=== PATIENT | female | born 1990 | race Caucasian/White ===

== ENCOUNTER 2016-10-27 12:25 | Outpatient (CLI) | payer OTHER ==
[2016-10-27 13:59] LABS: #Basophils 0.1 thou/uL (0.0-0.2); #Monocytes 0.4 thou/uL (0.11-0.59); #Neutrophils 6.4 thou/uL (1.40-6.50); %Basophils 0.6 % (0.0-1.0); %Eosinophils 0.4 % (0.0-10.0); %Lymphocytes 18.9 % (21.0-51.0); %Monocytes 4.3 % (0.0-10.0); %Neutrophils 75.8 % (42.0-75.0); Anisocytosis SLIGHT = 6-15 cells (100X) (0-5/hpf); Hemoglobin 12.4 g/dL (12.0-16.0); MDiff Complete? YES; Mean Corpuscular HGB CONC 34.6 g/dL (32.0-36.0); Mean Corpuscular Hemoglobin 34.3 pg (27.0-31.0); Mean Corpuscular Volume 99.1 fl (81.0-99.0); Mean Platelet Volume 8.1 fL (7.4-10.4); PLT Morphology Comment Appears Adequate; Platelet Count 223 thou/uL (130-400); RBC Distribution Width 11.9 % (11.5-14.5); Red Blood Cell (RBC) Count 3.62 mill/uL (4.20-5.40); White Blood Cell (WBC) Count 8.5 thou/uL (4.8-10.8)
[2016-10-27 18:13] LABS: HIV (1/2) Antibody/Antigen Non-Reactive (NonReactive); HIV 1/2 INDEX 0.24 S/CO (<1.00)
== END 2016-10-27 12:26 ==
LOC: MADLABBHPM 12:25
PROVIDERS: ATTEND Family Medicine
DX: Z34.83 Encounter for supervision of other normal pregnancy, third trimester (principal)
CPT/HCPCS: 82950; 85025; 86592; 87389

== ENCOUNTER 2016-12-19 17:58 | Outpatient (CLI) | payer OTHER | END 2016-12-19 17:59 | disposition home or self-care (01) | LOC: MADLABBHPM 17:58 | PROVIDERS: ATTEND Family Medicine | DX: Z34.83 Encounter for supervision of other normal pregnancy, third trimester (principal) | CPT/HCPCS: 87081 ==

== ENCOUNTER 2018-05-24 15:30 | Emergency (ER) | payer OTHER, SELFPAY ==
[~2018-05-24 15:30] MED LIST: Iopamidol 370 76% 100 ML VIAL ONE
[2018-05-24 16:15] LABS: Bilirubin Negative (Negative); Blood, Urine Large (Negative); Glucose, Urine (Dipstick) Negative (Negative); Leukocyte Negative (Negative); Nitrite Negative (Negative); Protein, Urine (Dipstick) 30 mg/dL (Neg-Trace); Specific Gravity, Urine 1.025 (1.005-1.030); pH, Urine 6.5 (5.0-9.0)
[2018-05-24 16:17] LABS: #Basophils 0.1 thou/uL (0.0-0.2); #Eosinphils 0.1 thou/uL (0.0-0.7); #Lymphocytes 2.2 thou/uL (1.20-3.40); #Monocytes 0.4 thou/uL (0.11-0.59); #Neutrophils 7.1 thou/uL (1.40-6.50); %Basophils 0.6 % (0.0-1.0); %Eosinophils 1.1 % (0.0-10.0); %Monocytes 4.5 % (0.0-10.0); %Neutrophils 71.8 % (42.0-75.0); Hemoglobin 13.8 g/dL (12.0-16.0); Mean Corpuscular HGB CONC 33.2 g/dL (32.0-36.0); Mean Corpuscular Hemoglobin 31.9 pg (27.0-31.0); Mean Platelet Volume 8.7 fL (7.4-10.4); Platelet Count 214 thou/uL (130-400); Pregnancy Test - Urine (BHCG) Negative (Negative); Pregu Control Background? CLEAR/WHITE (CLR/WHITE); Pregu Control Bar Appear? YES (CONTROL BAR); RBC Distribution Width 10.9 % (11.5-14.5); Red Blood Cell (RBC) Count 4.34 mill/uL (4.20-5.40); Specific Gravity 1.025 (1.002-1.036); White Blood Cell (WBC) Count 9.8 thou/uL (4.8-10.8)
[2018-05-24 16:18] LABS: Clarity Hazy (Clear)
[2018-05-24 16:22] LABS: Bacteria/HPF Rare-Few HPF (None Seen); WBC/HPF 0-3 HPF (0-3)
[2018-05-24 16:32] LABS: ALT (SGPT) 14 U/L (8-55); AST (SGOT) 13 U/L (5-34); Albumin 4.2 g/dL (3.5-5.0); Alkaline Phosphatase 64 U/L (40-150); Anion Gap 15 mmol/L (10-20); BUN (Urea Nitrogen) 10 mg/dL (7.0-18.7); Bilirubin, Total 0.6 mg/dL (0.2-1.2); Calc. Creatinine Clearance 0 mL/min (70-130); Calcium 9.3 mg/dL (7.8-10.44); Carbon Dioxide 25 mmol/L (22-29); Chloride 107 mmol/L (98-107); Estimated GFR-MDRD Greater than 90; Globulin 3.5 g/dL (2.4-3.5); Glucose 95 mg/dL (70-105); Potassium 3.6 mmol/L (3.5-5.1); Protein, Total 7.7 g/dL (6.0-8.3); Sodium 143 mmol/L (136-145)
--- NOTE | 2018-05-24 18:20 | CT ---
CT ABDOMEN AND PELVIS WITH CONTRAST: HISTORY: Right lower quadrant abdominal pain and dysuria. FINDINGS: ABDOMEN: The lung bases are clear. The liver, spleen, pancreas, and gallbladder regions appear unremarkable. The right and left adrenal glands and the right and left kidneys are normal in size. There is no sig nificant periaortic or mesenteric adenopathy. PELVIS: The appendix is mildly prominent. It measures approximately 8 mm in size, but I do not see any periappendiceal inflammatory process. There are a few ileocolic chain lymph nodes incidentally s een. The uterus has an unusual appearance, with what appears to be possibly dilatation to the endometrium. This is not true fluid density, but is low in attenuation. It does not have the typical appearance of a gestational sac or fibroid, but these would be two possibilities. Further evaluation with ultr asound would be recommended. IMPRESSION: 1. Unusual appearance to the uterus with what appears to be possibly a dilated endometrium. Possibi lities would include this representing a gestational sac, although I would believe, at this size, yesenia t some type of pole would be able to be visualized. It measures greater than 3 cm in size. It does not have the typical appearance of a fibroid. Another possibility would be if the patient has not had periods, this could be related to cervical canal stenoses. Again, further investigation with ultrasound would be suggested. 2. Small, fat-containing paraumbilical hernia. 3. Borderline-sized appendix, but there is no periappendiceal inflammatory change. POS: [facility]
== END 2018-05-24 20:21 | disposition short-term general hospital (02) ==
LOC: MADERS 15:30
DX: K35.80 Unspecified acute appendicitis (principal)
CPT/HCPCS: 74177; 80053; 81003; 81015; 81025; 85025; 87086; Q9967

== ENCOUNTER 2018-05-28 12:11 | Emergency (ER) | payer SELFPAY ==
[2018-05-28] MEDS ORDERED: Ondansetron PF 4 MG/2 ML Vial ONE (12:46)
[2018-05-28] MEDS ORDERED: Sodium Chloride 0.9% 1,000 ML ONE ×2 (12:46→15:13)
[2018-05-28 12:50] LABS: Bilirubin Negative (Negative); Blood, Urine Moderate (Negative); Glucose, Urine (Dipstick) Negative (Negative); Leukocyte Negative (Negative); Nitrite Negative (Negative); Protein, Urine (Dipstick) Trace mg/dL (Neg-Trace); Urobilinogen 0.2 mg/dL (0.2-1.0); pH, Urine 7.5 (5.0-9.0)
[2018-05-28 12:52] LABS: #Basophils 0.1 thou/uL (0.0-0.2); #Lymphocytes 0.8 thou/uL (1.20-3.40); #Monocytes 0.5 thou/uL (0.11-0.59); #Neutrophils 11.1 thou/uL (1.40-6.50); %Basophils 0.7 % (0.0-1.0); %Lymphocytes 6.6 % (21.0-51.0); %Monocytes 4.2 % (0.0-10.0); %Neutrophils 88.6 % (42.0-75.0); Hemoglobin 14.4 g/dL (12.0-16.0); Mean Corpuscular HGB CONC 33.1 g/dL (32.0-36.0); Mean Corpuscular Hemoglobin 31.6 pg (27.0-31.0); Mean Corpuscular Volume 95.4 fL (78.0-98.0); Mean Platelet Volume 8.2 fL (7.4-10.4); Platelet Count 232 thou/uL (130-400); RBC Distribution Width 10.6 % (11.5-14.5); Red Blood Cell (RBC) Count 4.56 mill/uL (4.20-5.40); White Blood Cell (WBC) Count 12.5 thou/uL (4.8-10.8)
[2018-05-28 12:54] LABS: Clarity Hazy (Clear)
[2018-05-28 12:56] LABS: Pregnancy Test - Urine (BHCG) Negative (Negative); Pregu Control Background? CLEAR/WHITE (CLR/WHITE); Pregu Control Bar Appear? YES (CONTROL BAR)
[2018-05-28 12:58] LABS: WBC/HPF 0-3 HPF (0-3)
[2018-05-28 12:59] LABS: Bacteria/HPF Rare-Few HPF (None Seen)
[2018-05-28 13:00] LABS: Other Casts/LPF 0-3 FINELY GRAN LPF (0-3 Hyaline)
[2018-05-28 13:07] LABS: ALT (SGPT) 22 U/L (8-55); AST (SGOT) 14 U/L (5-34); Albumin 4.3 g/dL (3.5-5.0); Alkaline Phosphatase 73 U/L (40-150); Anion Gap 15 mmol/L (10-20); BUN (Urea Nitrogen) 10 mg/dL (7.0-18.7); Bilirubin, Total 0.3 mg/dL (0.2-1.2); Calc. Creatinine Clearance 0 mL/min (70-130); Calcium 9.7 mg/dL (7.8-10.44); Carbon Dioxide 27 mmol/L (22-29); Chloride 98 mmol/L (98-107); Estimated GFR-MDRD Greater than 90; Globulin 3.6 g/dL (2.4-3.5); Glucose 101 mg/dL (70-105); Lipase 19 U/L (8-78); Potassium 3.4 mmol/L (3.5-5.1); Protein, Total 7.9 g/dL (6.0-8.3); Sodium 137 mmol/L (136-145)
--- NOTE | 2018-05-28 14:24 | CT ---
CT ABDOMEN AND PELVIS WITH IV CONTRAST: DATE: 05/28/2018. HISTORY: Fever and abdominal pain. Nausea and vomiting. The patient is post appendectomy on 05/25/2018. FINDINGS: The lung bases, liver, spleen, pancreas, bilateral adrenal glands, kidneys, abdominal aorta, urinary bladder, ureters, and adnexal structures demonstrate a normal CT appearance. There is linear increased density material at the cecal apex likely related to patient's history of p rior appendectomy. The appendix is not visualized. There is no fluid collection seen to suggest an a bscess. There are a few punctate foci of gas seen within the anterior aspect of the pelvis just abov e the level of the urinary bladder, and also at this level with the subcutaneous soft tissue centrall y there are a few punctate foci of gas. Given patient's history of recent surgery on 05/25/2018, thes e findings are likely postoperative in origin. There is a suggestion of minimal stranding within the right lower quadrant also likely postoperative in origin. There is no free fluid or lymphadenopathy in the abdomen or pelvis. No other interval change. IMPRESSION: 1. Interval postsurgical changes related to appendectomy. Punctate foci of gas are seen just anteri or to the urinary bladder at the level of the inferior rectus abdominus muscle and is likely related to recent postsurgical change. 2. There are minimal inflammatory changes in the right lower quadrant and mid pelvis adjacent to the cecum likely attributable to postoperative changes. There is no free fluid or fluid collection seen in the abdomen or pelvis. POS: [facility]
[2018-05-28] MEDS ORDERED: Acetaminophen 500 MG TAB ONE (14:26)
--- NOTE | 2018-05-28 14:52 | RAD ---
CHEST 2 VIEWS:: Date: 05/28/18 HISTORY: Fever. COMPARISON: None. FINDINGS: Lungs are clear. No pneumothorax or effusion. Cardiac silhouette and mediastinal contours within norm al limits. IMPRESSION: No acute intrathoracic abnormality. POS: [facility]
== END 2018-05-28 16:22 | disposition home or self-care (01) ==
LOC: MADERS 12:11
DX: J11.1 Influenza due to unidentified influenza virus with other respiratory manifestations (principal); R11.2 Nausea with vomiting, unspecified
CPT/HCPCS: 71046; 74177; 80053; 81003; 81015; 81025; 83690; 85025; 87086; 87804; 96361; 96374; J2405; J7050; Q9967

== ENCOUNTER 2021-09-26 19:03 | Emergency (ER) | payer OTHER | END 2021-09-26 20:12 | disposition home or self-care (01) | LOC: MADERS 19:03 | DX: S43.401A Unspecified sprain of right shoulder joint, initial encounter (principal); X50.9XXA Other and unspecified overexertion or strenuous movements or postures, initial encounter; Y99.0 Civilian activity done for income or pay ==

== ENCOUNTER 2023-06-13 17:12 | Emergency (ER) | payer OTHER ==
[2023-06-13 17:58] LABS: #Basophils 0.1 thou/uL (0.0-0.2); #Lymphocytes 0.3 thou/uL (1.20-3.40); #Monocytes 0.3 thou/uL (0.11-0.59); #Neutrophils 2.3 thou/uL (1.40-6.50); %Basophils 1.9 % (0.0-1.0); %Eosinophils 0.4 % (0.0-10.0); %Lymphocytes 10.7 % (21.0-51.0); %Monocytes 8.9 % (0.0-10.0); %Neutrophils 78.1 % (42.0-75.0); Hematocrit 40.9 % (36.0-47.0); Hemoglobin 14.3 g/dL (12.0-16.0); Mean Corpuscular HGB CONC 34.9 g/dL (32.0-36.0); Mean Corpuscular Hemoglobin 32.7 pg (27.0-31.0); Mean Corpuscular Volume 93.7 fl (78.0-98.0); Mean Platelet Volume 10.7 fL (7.4-10.4); Platelet Count 143 10x3/uL (130-400); RBC Distribution Width 10.9 % (11.5-14.5); Red Blood Cell (RBC) Count 4.37 mill/uL (4.20-5.40)
[2023-06-13 18:13] LABS: ALT (SGPT) 16 U/L (8-55); AST (SGOT) 18 U/L (5-34); Albumin 4.5 g/dL (3.5-5.0); Alkaline Phosphatase 56 U/L (40-110); Anion Gap 16 mmol/L (10-20); BUN (Urea Nitrogen) 9 mg/dL (7.0-18.7); Bilirubin, Total 0.4 mg/dL (0.2-1.2); Calc. Creatinine Clearance 0 mL/min (70-130); Calcium 9.5 mg/dL (7.8-10.44); Carbon Dioxide 19 mmol/L (22-29); Chloride 104 mmol/L (98-107); Estimated GFR 95; Globulin 2.9 g/dL (2.4-3.5); Glucose 183 mg/dL (70-105); Potassium 2.9 mmol/L (3.5-5.1); Protein, Total 7.4 g/dL (6.0-8.3); Sodium 136 mmol/L (136-145)
[2023-06-13 18:16] LABS: BHCG - Serum Negative (NEGATIVE)
[2023-06-13 18:17] LABS: Pregs Control Background? CLEAR/WHITE (CLR/WHITE); Pregs Control Bar Appear? YES (CONTROL BAR)
[2023-06-13] MEDS ORDERED: Potassium Chloride 20 MEQ TAB ONE (18:24)
== END 2023-06-13 18:48 | disposition home or self-care (01) ==
LOC: MADERS 17:12
DX: R29.0 Tetany (principal); E87.6 Hypokalemia; R06.02 Shortness of breath; Z55.6 Problems related to health literacy
CPT/HCPCS: 36415; 80053; 83735; 84703; 85025; 87804; 99284